=== PATIENT | female | born 1995 | race Caucasian/White ===

== ENCOUNTER 2018-10-24 15:00 | Outpatient (RCR) | payer MEDICAID, SELFPAY | END 2018-10-24 23:59 | LOC: DC 15:00 | DX: O24.410 Gestational diabetes mellitus in pregnancy, diet controlled (principal); O99.210 Obesity complicating pregnancy, unspecified trimester | CPT/HCPCS: 97802; G0108 ==

== ENCOUNTER 2018-10-29 16:06 | Outpatient (RCR) | payer MEDICAID, SELFPAY ==
[2017-08-29 16:00] VITALS: BMI 46.0
== END 2018-10-29 23:59 | disposition home or self-care (01) ==
LOC: DC 16:06
DX: O24.410 Gestational diabetes mellitus in pregnancy, diet controlled (principal); O99.210 Obesity complicating pregnancy, unspecified trimester

== ENCOUNTER 2019-10-28 16:53 | Emergency (ER) | payer MEDICAID, SELFPAY ==
[2019-10-28 16:54] VITALS: BP 119/74; PULSE 88; RESP 16; TEMP 36.3; O2SAT 99; BMI 41.3
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
[2019-10-28] MEDS: cycloBENZAPRine HCl 10 MG Tablet PO (18:14)
[2019-10-28] MEDS: Naproxen 500 MG Tablet PO (18:14)
[2019-10-28 18:18] VITALS: BP 140/85; PULSE 95; RESP 18
== END 2019-10-28 18:18 | disposition home or self-care (01) ==
LOC: ED 18:08
PROVIDERS: Emergency Provider Emergency Medicine
DX: M62.830 Muscle spasm of back (principal); M54.5 Low back pain; M54.2 Cervicalgia; V89.2XXA Person injured in unspecified motor-vehicle accident, traffic, initial encounter; Y93.9 Activity, unspecified; Y92.9 Unspecified place or not applicable; F41.9 Anxiety disorder, unspecified; Z79.899 Other long term (current) drug therapy
CPT/HCPCS: 72040; 72100; 99283

== ENCOUNTER 2022-07-01 16:16 | Emergency (ER) | payer MEDICAID, SELFPAY ==
[2022-07-01 16:17] VITALS: BP 171/103; PULSE 113; RESP 16; TEMP 36.6; O2SAT 100; BMI 48.0
--- NOTE | 2022-07-01 17:40 | RAD_ITS ---
STUDY: X-RAY CHEST REASON FOR EXAM: Female, 27 years old. cough TECHNIQUE: PA and lateral views of the chest. COMPARISON: None. FINDINGS: The lungs are clear and expanded. There is no demonstrated pleural abnormality. Normal size heart. Normal mediastinum and michelle. Normal visualized pulmonary arteries. Normal visualized aortic arch and descending thoracic aorta. Normal visualized thoracic spine. Normal visualized ribs, clavicles, and shoulders. There is no demonstrated abnormality of the visualized soft tissue structures of the upper abdomen. RAD/Chest PA and Lateral IMPRESSION: No evidence of acute cardiopulmonary process. Electronically Signed: Kris Null DO at 18:03 EDT ,
--- NOTE | 2022-07-01 18:27 | EDS_ITS ---
HPI HPI - URI History of Present Illness Chief Complaint: Cough Informant: patient Narrative Narrative: Patient is a 27-year-old female presenting with 1 week of cough, nasal congestion, change in hearing and generalized malaise. 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 She has been negative. She is had significant nasal congestion has taken Sudafed without any help. Sometimes she gets nauseous from coughing so much. She does not pains on her ribs in the middle of her chest from all of her coughing. She does smoke cigarettes but has cut back since she has been ill. Denies any fever or chills. Denies any ear pain but does feel that she has decreased hearing. Denies any sore throats, vomiting, change in bowel habits or urinary symptoms. No other complaints at this time. ROS ROS ED Constitutional Constitutional ED: Denies chills or fever(s) Eyes Eyes: Denies change in vision or diplopia ENT ENT ED: Reports other Details: Nasal congestion, ear fullness ; Denies ear pain or sore throat Cardiovascular Cardiovascular: Reports other; Denies chest pain Respiratory/Chest Respiratory/Chest: Reports cough and other Details: Chest wall pain ; Denies dyspnea or dyspnea on exertion Gastrointestinal Gastrointestinal: Reports nausea; Denies abdominal pain, diarrhea or vomiting Genitourinary Genitourinary ED: Denies dysuria or hematuria Musculoskeletal Musculoskeletal: Denies arthralgias or myalgias Integumentary Denies rash Neurologic Neurologic: Denies headache(s) or weakness Psychiatric Psychiatric: Denies anxiety [facility] Medical History Bruises easily Shoulder pain Home Medications norgestimate 0.25 mg-ethinyl estradiol 35 mcg tablet 1 tab PO DAILY 10/28/19 [History Last Taken 10/28/19] albuterol sulfate 90 mcg/actuation aerosol inhaler (ProAir HFA) 1 puff inhalation Q6H PRN shortness of breath or wheezing #6.7 grams 07/01/22 [Rx Last Taken Unknown] dextromethorphan-guaifenesin ER 60 mg-1,200 mg tab,extend release,12hr (Mucinex DM) 1 tab PO Q12H PRN cold symptoms #20 tabs 07/01/22 [Rx Last Taken Unknown] fluticasone propionate 50 mcg/actuation nasal spray,suspension (Flonase Allergy Relief) 1 spray intranasal DAILY #16 grams 07/01/22 [Rx Last Taken Unknown] Allergy/AdvReac Type Severity Reaction Status Date / Time No Known Allergies Allergy Verified 07/01/22 16:17 Surgical History Hx of cholecystectomy [place] teeth extracted Social History Smoking Status: Never smoker alcohol intake: current alcohol intake frequency: holidays/special occasions only EXAM Physical Exam Const Vital Signs: 07/01/22 16:17 07/01/22 18:03 Temperature 97.8 F Temperature Source Temporal Pulse Rate 113 H Respiratory Rate 16 Respiratory Effort Normal Non-Labored Respiratory Depth Normal Respiratory Pattern Normal Blood Pressure 171/103 H Blood Pressure Mean 125 Pulse Ox 100 Oxygen Delivery Method Room Air Room Air Positive well nourished and well developed General Appearance ED: well developed and NAD HEENT Reports moist mucous membranes HEENT Narrative: Normal tympanic membranes bilaterally normocephalic and atraumatic Face and Sinus: Negative for sinus tenderness Throat: posterior oropharynx normal Eyes PERRL and EOMs intact bilaterally Neck supple, no meningeal signs and no JVD Resp normal respiratory effort Resp Narrative: Coarse breath sounds throughout. No wheezing appreciated. Intermittent bronchial cough on exam Cardio no murmurs Rate: regular rate Rhythm: regular rhythm GI non-tender and non-distended Auscultation: normoactive bowel sounds Palpation: soft Back/Spine normal ROM Extremity normal to inspection and full ROM Neuro oriented x3 Sensorium / Orientation: alert Motor Exam: Negative for general weakness Psych mental status grossly normal Skin Rashes: no rashes MDM MDM MDM Narrative Medical decision making narrative: Patient is a 27-year-old female presenting with continued cough and upper respiratory symptoms. She appears nontoxic in no acute distress. Vital signs are significant for hypertension and tachycardia however they improve with rest. Symptoms are highly consistent with a viral syndrome. She does have some bronchial breath sounds so we will obtain a chest x-ray to rule out pneumonia. Chest x-ray interpreted by myself as well as radiology does not show any acute process. She is given a prescription for albuterol HFA inhaler, Flonase and Mucinex D to help with her symptoms. Counseled on drinking lots of fluids. Is given a work note for tomorrow. She states she has Sunday off. At this time I do not think she requires further blood work or imaging. No signs of pneumonia I do not think antibiotics are indicated. Lab Data Attestation: I reviewed the patient's lab results. Radiography Diagnostic Testing: Clinical Impression(s) from Imaging Studies Chest X-Ray 07/01/22 17:40 IMPRESSION: No evidence of acute cardiopulmonary process. Electronically Signed: Kris Null DO at 18:03 EDT , Discharge Plan Triage Chief Complaint: Cough ED Provider: Sommer Kaye Dx/Rx/DC Orders Clinical Impression: URI (upper respiratory infection), Bronchitis Instructions: ED Bronchitis, No Antibiotic (Adult), ED URI, Viral, No Abx (Adult) Prescriptions: New albuterol sulfate [ProAir HFA] 90 mcg/actuation HFA aerosol inhaler 1 puff inhalation Q6H PRN (Reason: shortness of breath or wheezing) Qty: 6.7 0RF fluticasone propionate [Flonase Allergy Relief] 50 mcg/actuation spray,suspension 1 spray intranasal DAILY Qty: 16 0RF Rx Instructions: administer into each nostril dextromethorphan-guaifenesin [Mucinex DM] 60-1,200 mg tablet extended release 12 hr 1 tab PO Q12H PRN (Reason: cold symptoms) Qty: 20 0RF No Action norgestimate-ethinyl estradiol 0.25-35 mg-mcg tablet 1 tab PO DAILY Label Comments: take 1 tablet by mouth once daily Stand Alone Forms: ED Work / School Excuse Primary Care Provider: Maria Esther Ospina NP Referrals: Maria Esther Ospina NP, [employer] [Primary Care Provider] - Disposition Disposition: Home, Self Care
== END 2022-07-01 18:48 | disposition home or self-care (01) ==
PROVIDERS: Emergency Provider Emergency Medicine; PCP Nurse Practitioner Primary Care; Visit Provider Emergency Medicine
DX: J40 Bronchitis, not specified as acute or chronic (principal); J06.9 Acute upper respiratory infection, unspecified; H91.90 Unspecified hearing loss, unspecified ear; I10 Essential (primary) hypertension; R07.89 Other chest pain; R11.0 Nausea
CPT/HCPCS: 71046; 99282

== ENCOUNTER 2024-04-03 14:41 | Emergency (ER) | payer SELFPAY ==
[2024-04-03 14:42] VITALS: BP 151/113; PULSE 98; RESP 22; TEMP 36.4; O2SAT 96
[2024-04-03 14:44] VITALS: BMI 39.4
--- NOTE | 2024-04-03 14:48 | NURSING ---
NO OLD EKGS
--- NOTE | 2024-04-03 15:23 | EKG12_ITS ---
Test Reason : DIZZINESS/CP Blood Pressure : / mmHG Vent. Rate : 094 BPM Atrial Rate : 094 BPM P-R Int : 152 ms QRS Dur : 078 ms QT Int : 358 ms P-R-T Axes : 055 056 031 degrees QTc Int : 447 ms Normal sinus rhythm Low voltage QRS Borderline ECG Confirmed by FIORDALIZA MALDONADO, PRAKASH ([id number]), assignment editor GEORGINA BULLOCK ([id number]) on 04/07/2024 9:28:41 AM Referred By: KATY Confirmed By:MULUGETA MANCERA MD
[2024-04-03 15:32] LABS: Absolute Lymphocyte Count 2.07 X10^3/uL (0.83-4.51); Absolute Neutrophil Count 6.8 X10^3/uL (2.0-7.7); Basophil# 0.05 X10^3/uL; Basophil% 0.5 % (0-1); Eosinophil# 0.26 X10^3/uL; Eosinophils% 2.7 % (0-5); Hematocrit 39.1 % (37-47); Hemoglobin 12.8 g/dL (12.0-15.0); Lymphocyte # 2.07 X10^3/ul (0.83-4.51); Lymphocyte % 21.3 % (19-41); Mean Corp Hgb Conc 32.7 g/dL (32-36); Mean Corpuscular Hgb 27.5 pg (27.0-32.0); Mean Corpuscular Volume 83.9 fL (81-99); Monocyte# 0.54 X10^3/uL; Monocyte% 5.6 % (0-10); NRBC Flagged by Analyzer 0 % (0-5); Neutrophil # 6.75 X10^3/uL (2.7-7.7); Neutrophil % 69.4 % (47-70); Platelet Count 279 K/mm3 (150-450); RBC Distribution Width CV 13.6 % (11.6-14.6); RBC Distribution Width SD 41.2 fl (35.1-43.9); Red Blood Count 4.66 M/mm3 (4.2-5.4); White Blood Count 9.7 K/mm3 (4.4-11.0)
--- NOTE | 2024-04-03 15:32 | EDS_ITS ---
HPI History of Present Illness Chief Complaint: Chest Pain Informant: patient Narrative Narrative: Patient is a 29-year-old female with history of anxiety and panic disorder in for an episode of chest discomfort. She is not like a pressure on the left side of her chest and ribs. She has associated shortness of breath. States it started around 2 PM. She notes she was at work and they were having a corn libertarian (she works at the [employer]). She started to lose her appetite, felt nauseous and then felt shaky, hot, clammy and sweaty. She had her vital signs taken and her heart rate was 114, blood pressure 159/118 and a blood sugar was 118. She is also clear of a right-sided headache. She has less time she had this consolation of symptoms she had COVID. She did take a COVID test but it was negative today. She notes that she felt fine yesterday and felt okay when she woke up today. She has been experiencing episodes of lightheadedness and is in the process of evaluate for POTS. She recently had a 3-day Holter monitor which she was told was okay. She states she was referred then to neurology but never heard back. Did not take any medication for symptoms prior to arrival. States she is not concerned for . Denies any swelling of her legs. Has a history of DVT or PE. Denies any change in her bowel movements notes. No other complaints or concerns reported at this time. [facility] Medical History Bruises easily Shoulder pain Home Medications ?Medication ?Instructions ?Recorded ?Last Taken ?Type norgestimate 0.25 mg-ethinyl 1 tab PO DAILY 10/28/19 10/28/19 History estradiol 35 mcg tablet albuterol sulfate 90 mcg/actuation 1 puff inhalation Q6H PRN 07/01/22 Unknown Rx aerosol inhaler (ProAir HFA) shortness of breath or wheezing #6.7 grams dextromethorphan-guaifenesin ER 60 1 tab PO Q12H PRN cold symptoms 07/01/22 Unknown Rx mg-1,200 mg tab,extend #20 tabs release,12hr (Mucinex DM) fluticasone propionate 50 1 spray intranasal DAILY #16 grams 07/01/22 Unknown Rx mcg/actuation nasal spray,suspension (Flonase Allergy Relief) ondansetron 4 mg disintegrating 4 mg PO Q8H PRN PRN Nausea #10 tabs 04/03/24 Unknown Rx tablet Allergy/AdvReac Type Severity Reaction Status Date / Time No Known Allergies Allergy Verified 04/03/24 14:41 Family History no significant family his Surgical History [place] teeth extracted Hx of cholecystectomy Social History Smoking Status: Current every day smoker tobacco type: e-cigarettes alcohol intake: current alcohol intake frequency: holidays/special occasions only ROS ROS ED Constitutional Constitutional ED: Reports sweats; Denies chills or fever(s) Eyes Eyes: Denies change in vision ENT ENT ED: Denies sore throat Cardiovascular Cardiovascular: Reports as per HPI and chest pain Respiratory/Chest Respiratory/Chest: Reports dyspnea; Denies cough Gastrointestinal Gastrointestinal: Reports nausea; Denies abdominal pain, constipation, diarrhea or vomiting Genitourinary Genitourinary ED: Denies dysuria Musculoskeletal Musculoskeletal: Denies arthralgias or myalgias Integumentary Denies rash Neurologic Neurologic: Reports headache(s); Denies paresthesias or weakness Psychiatric Psychiatric: Reports anxiety Hematologic/Lymphatic Hematologic/Lymphatic: Denies easy bleeding or easy bruising EXAM Physical Exam Const Vital Signs: 04/03/24 14:41 04/03/24 14:42 04/03/24 15:42 Temperature 97.6 F L Temperature Source Temporal Pulse Rate 98 Respiratory Rate 22 H Respiratory Effort Normal Blood Pressure 151/113 H Blood Pressure Mean 125 Pulse Ox 96 Oxygen Delivery Method Room Air Room Air 04/03/24 15:46 04/03/24 16:00 04/03/24 17:00 Temperature Temperature Source Pulse Rate 80 87 70 Respiratory Rate 14 18 16 Respiratory Effort Blood Pressure 129/67 H 133/75 H 120/64 Blood Pressure Mean 87 94 82 Pulse Ox 99 99 100 Oxygen Delivery Method Room Air 04/03/24 18:00 04/03/24 18:52 Temperature 98.0 F Temperature Source Pulse Rate 76 73 Respiratory Rate 18 21 H Respiratory Effort Blood Pressure 123/66 H 121/71 H Blood Pressure Mean 85 87 Pulse Ox 100 98 Oxygen Delivery Method Room Air Positive well nourished and well developed General Appearance ED: well developed and NAD HEENT Reports moist mucous membranes normocephalic and atraumatic Eyes PERRL and EOMs intact bilaterally Neck supple and no JVD Neck Narrative: No rigidity Chest Wall inspection of chest normal and palpation of chest normal Resp normal respiratory effort and clear to auscultation bilaterally Auscultation: Negative for wheezes or diminished lung sounds Cardio regular rate and regular rhythm Peripheral Pulses: radial pulses present and dorsalis pedis pulses present GI normal to inspection, nondistended, normoactive bowel sounds and soft to palpation Extremity normal to inspection General Extremety ED: Negative for edema General Extremity: Negative for edema Neuro oriented x3 Sensorium / Orientation: awake and alert Motor Exam: Negative for general weakness Psych mental status grossly normal Mood & Affect: anxious Skin no rashes or lesions noted and no wounds Heart Score History: Slightly/Non-Suspicious ECG: Normal Age: </= 45 years Risk Factors: 1 or 2 Risk Factors Score: 1 MDM MDM MDM Narrative Medical decision making narrative: Patient evaluated for less than 1 day of nausea, generalized malaise, headache, sweating and lack of appetite. Blood pressure is mildly elevated upon arrival but normalizes without further intervention in the emergency room. She is well- appearing. She is having chest pain to cardiac workup is performed. She does report tachycardia. Her vitals I did add on a D-dimer. This is normal and I have a low suspicion for pulmonary emboli. Do not think she requires a CTA. Cardiac workup including delta-2 troponin is negative x 2. I do not think this is a cardiac process. Patient is given IV fluids and Toradol in the ER with some improvement. Discussed with patient to cause her symptoms is not clear and this could be an e daya viral syndrome. At this time I do think it safe for her to be discharged home. Will be given a prescription for Zofran if she has further nausea, referral neurology (has been trying to follow-up outpatient with neurology but has been unsuccessful) and a work note. Is given return precautions to the emergency room. Patient verbalized agreement or stands plan. Discharged home in stable condition peer Lab Data Attestation: I reviewed the patient's lab results. Labs: Laboratory Results - last 24 hr 04/03/24 04/03/24 04/03/24 15:00 15:45 17:50 WBC 9.7 RBC 4.66 Hgb 12.8 Hct 39.1 MCV 83.9 MCH 27.5 MCHC 32.7 RDW Std Deviation 41.2 RDW Coeff of Juju 13.6 Plt Count 279 MPV 11.0 Immature Gran % (Auto) 0.500 Neut % (Auto) 69.4 Lymph % (Auto) 21.3 [place] % (Auto) 5.6 Eos % (Auto) 2.7 Baso % (Auto) 0.5 Absolute Neuts (auto) 6.8 Absolute Lymphs (auto) 2.07 Nucleated RBC % 0 D-Dimer Quant (PE/DVT) 0.38 Sodium 139 Potassium 3.6 Chloride 106 Carbon Dioxide 27.0 Anion Gap 6 BUN 12 Creatinine 0.85 Estim Creat Clear Calc 115.83 Est GFR (MDRD) Af Amer 103 Est GFR (MDRD) Non-Af 85 BUN/Creatinine Ratio 14.2 Glucose 95 Calcium 9.1 Troponin I High Sens < 3 L < 3 L Urine Test Negative Radiography Diagnostic Testing: Clinical Impression(s) from Imaging Studies Chest X-Ray 04/03/24 15:45 IMPRESSION: No acute cardiopulmonary pathology Electronically Signed: Naman Martin MD at 16:54 EDT , Rhythm Strip Rhythm Strip: Sinus Rhythm Rate: 94 Ectopy: None EKG Initial EKG: Attestation: I personally reviewed and interpreted this EKG as follows: Interpretation: Sinus Rhythm Comments: Normal sinus rhythm at a rate of 95 bpm Normal axis Normal intervals Normal ST segments Low voltage QRS Discharge Plan Triage Chief Complaint: Chest Pain Other Complaint: Dizziness ED Provider: Sommer Kaye Dx/Rx/DC Orders Clinical Impression: Chest pain of unknown etiology, Headache Instructions: ED Chest Pain, Noncardiac Prescriptions: New ondansetron 4 mg tablet,disintegrating 4 mg PO Q8H PRN PRN (Reason: Nausea) Qty: 10 0RF No Action norgestimate-ethinyl estradiol 0.25-35 mg-mcg tablet 1 tab PO DAILY Patient Comments: take 1 tablet by mouth once daily albuterol sulfate [ProAir HFA] 90 mcg/actuation HFA aerosol inhaler 1 puff inhalation Q6H PRN (Reason: shortness of breath or wheezing) Qty: 6.7 0RF fluticasone propionate [Flonase Allergy Relief] 50 mcg/actuation spray,s uspension 1 spray intranasal DAILY Qty: 16 0RF Rx Instructions: administer into each nostril dextromethorphan-guaifenesin [Mucinex DM] 60-1,200 mg tablet extended release 12 hr 1 tab PO Q12H PRN (Reason: cold symptoms) Qty: 20 0RF Stand Alone Forms: ED Work / School Excuse Primary Care Provider: Maria Esther Ospina NP Referrals: Maria Esther Ospina NP, [employer] [Primary Care Provider] - Activity Restrictions/Additional Instructions: Your workup today was normal. The cause your symptoms is not clear but it could be the start of an illness such as viral infection. Please return to the emergency room if you have worsening your symptoms. In the meantime alternate ibuprofen and Tylenol as needed for headache and pain. Make sure you are drinking plenty of fluids. Print Language: Kazakh Disposition Disposition: Home, Self Care Discharge Date/Time: 04/03/24 18:53
[2024-04-03] MEDS: 0.9% Normal Saline (1000mL) 1,000 ML 999 ML IV (15:37)
[2024-04-03] MEDS: Ketorolac 15 MG/ML Vial IV (15:38)
--- NOTE | 2024-04-03 15:45 | RAD_ITS ---
STUDY: X-RAY CHEST REASON FOR EXAM: Female, 29 years old. chest pain TECHNIQUE: PA and lateral COMPARISON: July 01, 2022 FINDINGS: The lungs are clear and expanded. There is no demonstrated pleural abnormality. Normal size heart. Normal mediastinum and michelle. Normal visualized pulmonary arteries. Normal visualized aortic arch and descending thoracic aorta. Dorsal spine demonstrates mild spondylosis. Normal visualized ribs, clavicles, and shoulders. There is no demonstrated abnormality of the visualized soft tissue structures of the upper abdomen. RAD/Chest PA and Lateral IMPRESSION: No acute cardiopulmonary pathology Electronically Signed: Naman Martin MD at 16:54 EDT Reading Location ID and State: [facility] / [place] Tel , Service support ,
[2024-04-03 15:46] VITALS: BP 129/67; PULSE 80; RESP 14; O2SAT 99
[2024-04-03 15:50] LABS: D-Dimer Quantitative (DVT/PE) 0.38 FEU/ug/m (0.27-0.49)
[2024-04-03 16:00] VITALS: BP 133/75; PULSE 87; RESP 18; O2SAT 99
[2024-04-03 16:17] LABS: Internal QC Validated? YES +Cl - CLEAR BKGD; Pregnancy, Urine Negative Negative
[2024-04-03 16:18] LABS: Record Kit Lot#,Urine Preg 772476
[2024-04-03 17:00] VITALS: BP 120/64; PULSE 70; RESP 16; O2SAT 100
[2024-04-03 17:37] LABS: Anion Gap 6 (5-15); BUN 12 mg/dL (7-18); BUN/Creat Ratio 14.2 RATIO (10-20); Calcium,Total 9.1 mg/dL (8.5-10.1); Chloride 106 mmol/L (98-107); Creatinine, Serum 0.85 mg/dL (0.55-1.02); EST Glomerular Filtration Rate 85 mL/min (>60); Est Glom Filt Rate - Afr Amer 103 mL/min (>60); Estimated Creatinine Clearance 115.83 ml/min; Glucose 95 mg/dL (74-106); Potassium 3.6 mmol/L (3.5-5.1); Sodium Level 139 mmol/L (136-145); Troponin-I HS (w/2H Reflex) < 3 pg/mL (3.0-54.0)
[2024-04-03 17:38] LABS: Reflex Troponin-HS? (from REC) Y
[2024-04-03 18:00] VITALS: BP 123/66; PULSE 76; RESP 18; O2SAT 100
[2024-04-03 18:18] LABS: Troponin-I HS < 3 pg/mL (3.0-54.0)
[2024-04-03 18:52] VITALS: BP 121/71; PULSE 73; RESP 21; TEMP 36.7; O2SAT 98
== END 2024-04-03 18:53 | disposition home or self-care (01) ==
PROVIDERS: Emergency Provider Emergency Medicine; PCP Nurse Practitioner Primary Care; Visit Provider Emergency Medicine
DX: R07.89 Other chest pain (principal); R51.9 Headache, unspecified; F17.290 Nicotine dependence, other tobacco product, uncomplicated
CPT/HCPCS: 71046; 80048; 81025; 84484; 85025; 85379; 93005; 96361; 96374; 99285; J7030; A4216